=== PATIENT | female | born 1940 | race Two or more races ===

== ENCOUNTER → 2019-01-22 | Outpatient (CLI) | payer OTHER ==
[~2019-01-22] MED LIST: FLEXERIL10 MG PO; MOTRIN800 MG PO; SEPTRA DS TABLE1 TAB PO
== END | disposition home or self-care (01) ==
LOC: NUCLEAR 07:00
DX: I10 Essential (primary) hypertension (principal); I20.9 Angina pectoris, unspecified